=== PATIENT | female | born 1965 | race Caucasian/White ===

== ENCOUNTER → 2017-08-15 | Outpatient (CLI) | payer OTHER ==
[~2017-08-15] MED LIST: ALBU90OI6 INH; AMOX500 PO; CEPH500 PO; CIPR500 PO; CITA20 PO; CLARITIN5 MG PO; CLIN150 PO; HYDACE5 PO; HYDACE5325 PO; IBUHYD PO; IBUP800 PO; METPRE4DP PO; METR500 PO; OXYACE5T PO; PROM25 PO; RXCEPH500 PO; RXOXYACE PO; RXSULTRIDS PO; SULTRIDS PO
[2017-08-15 13:06] LABS: Appearance, Urine Clear (Clear); Bilirubin, Urine Neg (Neg); Blood, Urine 2+ (Neg); Color, Urine Yellow (P-Yellow); Glucose Qualitative, Urine Neg (Neg); Ketones, Urine Neg (Neg); Leukocyte Esterase, Urine Neg (Neg); Nitrite, Urine Neg (Neg); Protein, Urine Neg (Neg); Urobilinogen, Urine NORM (Normal)
[2017-08-15 13:26] LABS: Bacteria Not Seen /hpf; Red Blood Cells, Urine Not Seen /hpf (0-2); Squamous Epithelial Cells Rare /hpf (Few); White Blood Cells, Urine 0-2 /hpf (0-5)
== END ==
LOC: LAB SHORT 12:43
PROVIDERS: Obstetrics & Gynecology
DX: R82.90 Unspecified abnormal findings in urine (principal)
CPT/HCPCS: 81001

== ENCOUNTER 2017-08-27 10:04 | Day surgery (SDC) | payer OTHER ==
[~2017-08-27 10:04] MED LIST changes: -CLARITIN5 MG PO
== END 2017-08-27 22:45 | disposition home or self-care (01) ==
LOC: RAD 10:04 → ORSCMMR 10:04 → ORD 10:04 → ORSCMMR 10:05 → ORD 10:30 → RAD 11:00 → ORD 22:45 → ORSCMMR 22:45
PROVIDERS: Radiology Diagnostic Radiology
PROC: BT10YZZ Fluoroscopy of Bladder using Other Contrast (ICD-10-PCS; principal; 2017-08-27 10:30)
DX: R32 Unspecified urinary incontinence (principal)
CPT/HCPCS: 51600; 74455; Q9967

== ENCOUNTER 2021-07-27 17:20 | Emergency (ER) | payer OTHER ==
[~2021-07-27] VITALS: Ht 154.9 cm; Wt 78.0 kg
[~2021-07-27 17:20] MED LIST changes: +CLARITIN5 MG PO
[2021-07-27 18:39] LABS: Influenza A, PCR NEGATIVE (NEGATIVE); Influenza B, PCR NEGATIVE (NEGATIVE); Resp Syncytial Virus, PCR NEGATIVE (NEGATIVE); SARS-Cov-2 (COVID-19) PCR, MMC NEGATIVE (NEGATIVE)
== END 2021-07-27 19:50 | disposition home or self-care (01) ==
LOC: ER 17:20
PROVIDERS: Physician Assistant
DX: J06.9 Acute upper respiratory infection, unspecified (principal); Z20.822 Contact with and (suspected) exposure to COVID-19; Z87.891 Personal history of nicotine dependence
CPT/HCPCS: 0241U; 87077; 87081; 87185; 87430; 99283

== ENCOUNTER 2021-09-05 10:52 | Emergency (ER) | payer OTHER ==
[~2021-09-05] VITALS: Ht 154.9 cm; Wt 79.4 kg
[2021-09-05 12:10] LABS: BASOPHILS ABSOLUTE AUTO 0.04 K/mm3 (0.00-0.23); BASOPHILS PERCENT AUTO 1 % (0-2); EOSINOPHILS ABSOLUTE AUTO 0.09 K/mm3 (0.00-0.68); EOSINOPHILS PERCENT AUTO 1 % (0-6); Hematocrit 44.2 % (33.0-51.0); Hemoglobin 14.6 g/dL (11.5-16.0); IMMATURE GRAN ABSOLUTE AUTO 0.02 K/mm3 (0.00-0.10); IMMATURE GRAN PERCENT AUTO 0 % (0-1); LYMPHOCYTES ABSOLUTE AUTO 2.32 K/mm3 (0.84-5.20); LYMPHOCYTES PERCENT AUTO 32 % (21-46); MONOCYTES ABSOLUTE AUTO 0.44 K/mm3 (0.16-1.47); MONOCYTES PERCENT AUTO 6 % (4-13); Mean Corpuscular HGB 30.1 pg (26.0-34.0); Mean Corpuscular Volume 91 fL (80-100); Mean Platelet Volume 10.8 fL (9.1-12.4); NEUTROPHILS ABSOLUTE AUTO 4.25 K/mm3 (1.96-9.15); NEUTROPHILS PERCENT AUTO 59 % (41-73); Platelet Count 331 K/mm3 (150-400); RDW Coefficient Variation 13.7 % (11.7-14.2); RDW Standard Deviation 46.2 fL (35.1-46.3); Red Blood Cell Count 4.85 M/mm3 (3.80-5.20); White Blood Cell Count 7.16 K/mm3 (4.00-11.30)
[2021-09-05 12:22] LABS: Alanine Aminotransfer (ALT/SGP 22 U/L (12-78); Albumin, Blood 4.2 g/dL (3.4-5.0); Albumin/Globulin Ratio 1.1 (0.8-1.8); Alk Phos 75 U/L (50-136); Anion Gap 4 mmol/L (6-16); Aspartate Aminotrans (AST/SGOT 14 U/L (12-37); Bilirubin, Total 0.4 mg/dL (0.1-1.0); Blood Urea Nitrogen 10 mg/dL (8-24); Bun/Creatinine Ratio 17.8 (12.0-20.0); CO2, Blood 28 mmol/L (21-32); Calcium, Blood 9.5 mg/dL (8.5-10.1); Chloride, Blood 107 mmol/L (98-108); Creatinine, Blood 0.56 mg/dL (0.40-1.00); Globulin, Blood 3.7 g/dL (2.2-4.0); Glomerular Filtration Rate >60 (60-); Glucose, Blood 118 mg/dL (70-99); Potassium, Blood 4.7 mmol/L (3.5-5.5); Sodium, Blood 139 mmol/L (136-145); Total Protein, Blood 7.9 g/dL (6.4-8.2)
== END 2021-09-05 14:39 | disposition home or self-care (01) ==
LOC: ER 10:52
PROVIDERS: Physician Assistant
DX: R07.9 Chest pain, unspecified (principal); R51.9 Headache, unspecified; M79.602 Pain in left arm; R68.84 Jaw pain; Z79.899 Other long term (current) drug therapy
CPT/HCPCS: 36415; 80053; 84484; 85025; 93005; 93010; 99283-25

== ENCOUNTER → 2021-09-30 | Outpatient (CLI) | payer OTHER | END | disposition home or self-care (01) | LOC: LAB SHORT 15:28 → LAB 15:28 | DX: R31.9 Hematuria, unspecified (principal) | CPT/HCPCS: 87086 ==

== ENCOUNTER → 2021-10-12 | Outpatient (CLI) | payer OTHER ==
[2021-10-16 17:10] LABS: HPV 16 Negative (Negative); HPV 18 Negative (Negative); HPV OTHER HR TYPES Negative (Negative)
== END | disposition home or self-care (01) ==
LOC: LAB SHORT 12:00
PROVIDERS: Physician Assistant
DX: Z01.419 Encounter for gynecological examination (general) (routine) without abnormal findings (principal)
CPT/HCPCS: 87624; G0145

== ENCOUNTER 2022-03-05 19:57 | Emergency (ER) | payer OTHER ==
[~2022-03-05] VITALS: Ht 154.9 cm; Wt 81.7 kg
[2022-03-05] MEDS ORDERED: Percocet 5-3251 EACH PO (23:01)
== END 2022-03-06 00:15 | disposition home or self-care (01) ==
LOC: ER 19:57
DX: M25.512 Pain in left shoulder (principal); G89.29 Other chronic pain; Z79.899 Other long term (current) drug therapy
CPT/HCPCS: 73030; 99283-25; A9270

== ENCOUNTER 2023-05-22 21:17 | Emergency (ER) | payer OTHER ==
[~2023-05-22] VITALS: Ht 157.5 cm; Wt 81.7 kg
[~2023-05-22 21:17] MED LIST changes: +Percocet 5-3251 EACH PO
[2023-05-22 21:47] LABS: BASOPHILS ABSOLUTE AUTO 0.05 K/mm3 (0.00-0.23); BASOPHILS PERCENT AUTO 1 % (0-2); EOSINOPHILS ABSOLUTE AUTO 0.12 K/mm3 (0.00-0.68); EOSINOPHILS PERCENT AUTO 1 % (0-6); Hematocrit 40.2 % (33.0-51.0); IMMATURE GRAN ABSOLUTE AUTO 0.02 K/mm3 (0.00-0.10); IMMATURE GRAN PERCENT AUTO 0 % (0-1); LYMPHOCYTES ABSOLUTE AUTO 3.25 K/mm3 (0.84-5.20); LYMPHOCYTES PERCENT AUTO 33 % (21-46); MONOCYTES PERCENT AUTO 6 % (4-13); Mean Corpuscular HGB Conc 34.8 g/dL (31.5-36.5); Mean Corpuscular Volume 89 fL (80-100); Mean Platelet Volume 10.9 fL (9.1-12.4); NEUTROPHILS ABSOLUTE AUTO 5.79 K/mm3 (1.96-9.15); NEUTROPHILS PERCENT AUTO 59 % (41-73); Platelet Count 279 K/mm3 (150-400); RDW Coefficient Variation 13.5 % (11.7-14.2); RDW Standard Deviation 44.2 fL (35.1-46.3); Red Blood Cell Count 4.52 M/mm3 (3.80-5.20); White Blood Cell Count 9.83 K/mm3 (4.00-11.30)
[2023-05-22 22:06] LABS: Albumin, Blood 4.1 g/dL (3.4-5.0); Albumin/Globulin Ratio 1.2 (0.8-1.8); Bilirubin, Total 0.3 mg/dL (0.1-1.0); Bun/Creatinine Ratio 14.4 (12.0-20.0); Calcium, Blood 9.2 mg/dL (8.5-10.1); Creatinine, Blood 0.55 mg/dL (0.40-1.00); Globulin, Blood 3.4 g/dL (2.2-4.0); Potassium, Blood 3.8 mmol/L (3.5-5.5); Total Protein, Blood 7.5 g/dL (6.4-8.2)
[2023-05-22] MEDS ORDERED: Aspir 8181 MG PO (22:18)
[2023-05-22] MEDS ORDERED: CETI5 PO (22:18)
[2023-05-22] MEDS ORDERED: CLIMARA1 EACH TOP (22:20)
[2023-05-22 23:12] LABS: Magnesium, Blood 2.2 mg/dL (1.6-2.4); Phosphorus, Blood 3.8 mg/dL (2.5-4.9)
[2023-05-23 00:45] VITALS: BP 145/74
== END 2023-05-23 01:00 | disposition home or self-care (01) ==
LOC: ER 21:17
PROVIDERS: Student in an Organized Health Care Education/Training Program
DX: R07.89 Other chest pain (principal); Z79.899 Other long term (current) drug therapy; Z79.82 Long term (current) use of aspirin
CPT/HCPCS: 71046; 80053; 83690; 83735; 84100; 84484; 85025; 85379; 93005; 93010; 99285-25

== ENCOUNTER → 2024-04-01 | Outpatient (CLI) | payer OTHER ==
[~2024-04-01] MED LIST changes: +Aspir 8181 MG PO; +CETI5 PO; +CLIMARA1 EACH TOP
[2024-04-02 14:59] LABS: Stool Occult Blood Guaiac 1 Neg (Neg)
== END ==
LOC: LAB 13:30 → LAB SHORT 13:30
PROVIDERS: Family Medicine
DX: K92.1 Melena (principal)
CPT/HCPCS: 82272

== ENCOUNTER 2024-06-22 01:13 | Emergency (ER) | payer OTHER ==
[~2024-06-22] VITALS: Ht 154.9 cm; Wt 82.5 kg
[2024-06-22 01:34] VITALS: BP 146/76
[2024-06-22] MEDS ORDERED: Cephalexin Monohydrate 500 MG Cap PO ONE (02:20)
[2024-06-22] MEDS ORDERED: Diphth,Pertuss(Acell),Tet Vac 0.5 ML VIAL IM ONE (02:45)
[2024-06-22] MEDS ORDERED: CEPH500 PO (02:59)
[2024-06-22] MEDS ORDERED: Voltaren100 GM TOP (03:14)
== END 2024-06-22 03:28 | disposition home or self-care (01) ==
LOC: ER 01:13
DX: L03.115 Cellulitis of right lower limb (principal); Z79.82 Long term (current) use of aspirin; Z79.899 Other long term (current) drug therapy
CPT/HCPCS: 73630; 90471; 90715; 99283-25; A9270